=== PATIENT | male | born 1995 | race Caucasian/White ===

== ENCOUNTER 2017-12-09 11:56 | Emergency (ER) | payer OTHER ==
[~2017-12-09] VITALS: Ht 188 cm; Wt 111.1 kg
[2017-12-09] MEDS ORDERED: KEFLEX500 M1 PO (14:04)
[2017-12-09] MEDS ORDERED: NORCO 5-325 TA1 EACH PO (14:11)
[2017-12-09 14:18] VITALS: BP 129/80
== END 2017-12-09 14:19 | disposition home or self-care (01) ==
LOC: M.ERS 11:56
DX: S62.511A Displaced fracture of proximal phalanx of right thumb, initial encounter for closed fracture (principal); Z88.1 Allergy status to other antibiotic agents; W23.0XXA Caught, crushed, jammed, or pinched between moving objects, initial encounter; Y93.89 Activity, other specified; Y92.89 Other specified places as the place of occurrence of the external cause; Y99.8 Other external cause status